=== PATIENT | female | born 1935 | race Caucasian/White ===

== ENCOUNTER 2021-05-15 17:36 | Emergency (ER) | payer MEDICARE ==
--- NOTE | 2021-05-15 17:48 | ERPHSYRPT ---
- History of Present Illness Time Seen by Provider: 05/15/21 17:48 Source: patient, family Exam Limitations: no limitations Physician History: This is an 85-year-old white female has a history of Parkinson's disease and hypertension. Patient took her hypertensive medication this morning. Her face was a bit flushed. This is a symptom that she has when her blood pressure is elevated. She then took her blood pressure at home and the systolic blood pressure was very elevated so she was brought into the emergency department for evaluation. Patient denies headache. Patient denies visual changes. Patient states that she was just seen by her audio/visual manager yesterday and everything on her eye exam looked normal and unchanged from prior evaluation in the audio/visual manager office. Patient has no chest pain. She is not short of breath. Her only complaint was flushed face which resolved prior to arrival to the emergency department. Timing/Duration: today, resolved prior to arrival Severity: mild (And resolved prior to arrival) Modifying Factors: Improves With: nothing Associated Symptoms: denies symptoms Allergies/Adverse Reactions: Sulfa (Sulfonamide Antibiotics) Allergy (Mild, Verified 05/15/21 17:54) Headache Home Medications: Acetaminophen [Tylenol] 650 mg PO Q4HPRN 11/20/14 [History] Lovastatin 40 mg PO HS 11/20/14 [History] Metoprolol Succinate 100 mg [Toprol Xl 100 MG] 100 mg PO DAILY 11/20/14 [History] Multivitamin/Iron/Folic Acid [Centrum Complete Multivit Tab] 1 each PO HS 11/20/14 [History] Amlodipine Besylate 5 mg [Norvasc 5 mg] 5 mg PO DAILY 05/15/21 [History] Amlodipine/Valsartan/Hcthiazid [Fehya-Gvmvf-Obrt 10-320-25 mg] 1 each PO DAILY 05/15/21 [History] Carbidopa/Levodopa [Carbidopa-Levo 25-100 Tab] 1 tablet PO QID 05/15/21 [History] Dorzolamide HCl/Pf [Dorzolamide 2% Eye Drop] 1 drop OP BID 05/15/21 [History] Memantine HCl 10 mg PO DAILY 05/15/21 [History] Potassium Chloride 10 Meq Tab* [Klor Con 10 MEQ] 10 meq PO DAILY 05/15/21 [History] Rivastigmine Tartrate [Rivastigmine] 1.5 mg PO TID 05/15/21 [History] Sertraline HCl 25 mg PO DAILY 05/15/21 [History] Hx Tetanus, Diphtheria Vaccination/Date Given: No Hx Influenza Vaccination/Date Given: Yes (2016) Hx Pneumococcal Vaccination/Date Given: Yes (2015) Travel Risk - International Travel Have you traveled outside of the country in past 3 weeks: No - Coronavirus Screening Are you exhibiting any of the following symptoms?: No Close contact with a COVID-19 positive Pt in past 14-21 Days: No - Review of Systems Constitutional: No Symptoms Eyes: No Symptoms Ears, Nose, & Throat: No Symptoms Respiratory: No Symptoms Cardiac: No Symptoms Abdominal/Gastrointestinal: No Symptoms Genitourinary Symptoms: No Symptoms Musculoskeletal: No Symptoms Skin: Other (Brief flushing of face prior to arrival) Neurological: No Symptoms Psychological: No Symptoms Endocrine: No Symptoms Hematologic/Lymphatic: No Symptoms Immunological/Allergic: No Symptoms All Other Systems: Reviewed and Negative - Past Medical History Pertinent Past Medical History: Yes Neurological History: No Pertinent History, Other Cardiac History: High Cholesterol, Hypertension Respiratory History: No Pertinent History Endocrine Medical History: No Pertinent History Musculoskeletal History: Osteoarthritis GI Medical History: Irritable Bowel History: No Pertinent History Psycho-Social History: No Pertinent History Female Reproductive Disorders: No Pertinent History Other Medical History: PARKINSON'S DX'D 5 YEARS AGO. GLAUCOMA, IBS, CHRONIC LBP, - Past Surgical History Past Surgical History: Yes Neuro Surgical History: No Pertinent History Cardiac: No Pertinent History Respiratory: No Pertinent History Gastrointestinal: No Pertinent History Genitourinary: No Pertinent History Female Surgical History: Hysterectomy Other Surgical History: BLADDER SURGERY,HYSTERECTOMY,EYE SURGERY - Social History Smoking Status: Former smoker Exposure to second hand smoke: Yes Drug Use: none Patient Lives Alone: No - Nursing Vital Signs Nursing Vital Signs: Initial Vital Signs Temperature 97.2 F 05/15/21 17:43 Pulse Rate 69 05/15/21 17:43 Blood Pressure 198/82 05/15/21 17:43 O2 Sat by Pulse Oximetry 98 05/15/21 17:43 Pain Scale Pain Intensity 0 - Physical Exam General Appearance: no apparent distress, alert, anxiety Eye Exam: PERRL/EOMI, eyes nml inspection Ears, Nose, Throat Exam: normal ENT inspection, moist mucous membranes Neck Exam: normal inspection, non-tender, supple, full range of motion Respiratory Exam: normal breath sounds, lungs clear, airway intact, No chest tenderness, No respiratory distress Cardiovascular Exam: regular rate/rhythm, normal heart sounds, normal peripheral pulses Gastrointestinal/Abdomen Exam: soft, normal bowel sounds, No tenderness Pelvic Exam: not done Rectal Exam: not done Back Exam: normal inspection, normal range of motion, No CVA tenderness, No vertebral tenderness Extremity Exam: normal inspection, normal range of motion, pelvis stable Neurologic Exam: alert, oriented x 3, cooperative, employee relations manager II-XII nml as tested, normal mood/affect, nml cerebellar function, nml station & gait, No sensation nml Skin Exam: normal color, warm, dry Lymphatic Exam: No adenopathy SpO2 Interpretation: normal O2 Delivery: Room Air - Course Nursing assessment & vital signs reviewed: Yes Ordered Tests: Active Orders 24 hr Category Date Time Status IV Insertion STAT Care 05/15/21 18:19 Active BMP Stat Lab 05/15/21 18:18 Completed CBC W DIFF Stat Lab 05/15/21 18:18 Completed Medication Summary Discontinued Medications Generic Name Dose Route Start Last Admin Trade Name Freq PRN Reason Stop Dose Admin Enalaprilat 0.625 mg 05/15/21 19:10 05/15/21 19:26 Vasotec I.V. 2.5 Mg IV 05/15/21 19:11 0.625 mg STAT ONE Administration Enalaprilat Confirm 05/15/21 19:24 Vasotec I.V. 2.5 Mg Administered 05/15/21 19:25 Dose 2.5 mg IV .STK-MED ONE Lab/Rad Data: Laboratory Result Diagrams 05/15/21 18:18 05/15/21 18:18 Laboratory Results 05/15/21 05/15/21 Range/Units 18:18 18:18 WBC 7.6 (4.0-10.5) K/mm3 RBC 4.26 (4.1-5.4) M/mm3 Hgb 12.5 (12.0-16.0) gm/dl Hct 39.7 (35-47) % MCV 93.2 (78-100) fl MCH 29.3 (26-32) pg MCHC 31.5 L (32-36) g/dl RDW 15.2 H (11.5-14.0) % Plt Count 241 (150-450) K/mm3 MPV 10.8 (7.5-11.0) fl Gran % 55.2 (36.0-66.0) % Eos # (Auto) 0.24 (0-0.5) Absolute Lymphs (auto) 2.66 (1.0-4.6) Absolute Monos (auto) 0.46 (0.0-1.3) Lymphocytes % 35.2 (24.0-44.0) % Monocytes % 6.1 (0.0-12.0) % Eosinophils % 3.2 (0.00-5.0) % Basophils % 0.3 (0.0-0.4) % Absolute Granulocytes 4.18 (1.4-6.9) Basophils # 0.02 (0-0.4) Sodium 141 (137-145) mmol/L Potassium 3.8 (3.5-5.1) mmol/L Chloride 105 (98-107) mmol/L Carbon Dioxide 27 (22-30) mmol/L Anion Gap 12.5 (5-15) MEQ/L BUN 22 H (7-17) mg/dL Creatinine 1.04 (0.52-1.04) mg/dL Estimated GFR 53.3 ML/MIN Glucose 95 (74-106) mg/dL Calcium 9.2 (8.4-10.2) mg/dL - Progress Progress: improved, re-examined Progress Note: 05/15/21 19:42 Medical decision making: This patient does have hypertension. She has no symptoms. Her laboratory work-up results are within normal limits. We did provide her with a single dose of enalapril intravenously. We will discharge her to home with instruction to continue her medicine as prescribed. She is to follow-up with her primary care physician. Counseled pt/family regarding: lab results, diagnosis, need for follow-up - Departure Departure Disposition: Home Clinical Impression: Hypertensive urgency Condition: Stable Critical Care Time: Yes Critical Care Time(excluding separately billable procedures): Critical 30-74 mins Referrals: ALMAZ WELDON MD [Primary Care Provider] - Additional Instructions: Drink plenty of fluids. Take your medication as prescribed. Follow-up with your primary care/prescribing physician for further management. Monitor and keep a log of your blood pressure tonight and in the morning. Call your prescribing doctor tomorrow morning for further management.
[2021-05-15] MEDS ORDERED: VASOTEC I.V. 2.5 MG IV ONE ×2 (19:10→19:24)
[2021-05-15 19:16] LABS: Absolute Neutrophil Ct (ANC) 4.18 (1.4-6.9); BASOPHIL % 0.3 % (0.0-0.4); Basophil (Absolute #) 0.02 (0-0.4); Eosinophil % 3.2 % (0.00-5.0); Eosinophil (Absolute #) 0.24 (0-0.5); Hematocrit 39.7 % (35-47); Hemoglobin 12.5 gm/dl (12.0-16.0); Lymphocyte (Absolute #) 2.66 (1.0-4.6); Lymphocytes % 35.2 % (24.0-44.0); Mean Cell Volume 93.2 fl (78-100); Mean Corpuscular Hemoglobin 29.3 pg (26-32); Mean Corpuscular Hgb Concent. 31.5 g/dl (32-36); Mean Platelet Volume 10.8 fl (7.5-11.0); Monocyte (Absolute #) 0.46 (0.0-1.3); Monocytes % 6.1 % (0.0-12.0); Neutrophil % 55.2 % (36.0-66.0); Platelet Count 241 K/mm3 (150-450); Red Blood Count 4.26 M/mm3 (4.1-5.4); Red Cell Distribution Width 15.2 % (11.5-14.0); White Blood Count 7.6 K/mm3 (4.0-10.5)
[2021-05-15 19:28] LABS: ANION GAP 12.5 MEQ/L (5-15); Calcium 9.2 mg/dL (8.4-10.2); Creatinine 1 1.04 mg/dL (0.52-1.04); EST GLOMERULAR FILTRATION RATE 53.3 ML/MIN; Potassium 3.8 mmol/L (3.5-5.1)
[2021-05-15 19:48] VITALS: BP 155/62; PULSE 57; O2SAT 99
== END 2021-05-15 20:11 | disposition home or self-care (01) ==
LOC: ED 17:36
DX: I16.0 Hypertensive urgency (principal); G20 Parkinson's disease; K58.9 Irritable bowel syndrome, unspecified; Z79.899 Other long term (current) drug therapy
CPT/HCPCS: 36000; 36415; 80048; 85025; 96374; 99284; 99291

== ENCOUNTER 2021-05-29 02:02 | Emergency (ER) | payer MEDICARE ==
[2021-05-29] MEDS ORDERED: DELTASONE 20 MG PO ONE (02:14)
[2021-05-29] MEDS ORDERED: DUONEB 0.5-3 MG/3 ml Neb IH ONE ×2 (02:14→02:43)
--- NOTE | 2021-05-29 02:18 | ERPHSYRPT ---
- History of Present Illness Time Seen by Provider: 05/29/21 02:06 Source: patient, EMS Exam Limitations: no limitations Physician History: 85 years old female with history of Parkinson's disease, hypertension presented in the ER with 4 days history of nonproductive cough with progressive worsening especially with lying down. Patient also report having subjective feeling of fever and chills tonight. She is afebrile on presentation. Denies any shortness of breath. Patient denies any chest pain/pressure. Denies any sick contact. Does have Covid vaccine. Timing/Duration: day(s) (4), intermittent, gradual onset, worse Cough Quality/Degree: dry cough Possible Cause: no prior episodes Modifying Factors: Worsens With: lying down Associated Symptoms: fever, chest pain/soreness, cough, headache, No nasal drainage, No shortness of breath, No wheezing Allergies/Adverse Reactions: Sulfa (Sulfonamide Antibiotics) Allergy (Mild, Verified 05/29/21 02:37) Headache Home Medications: Acetaminophen [Tylenol] 650 mg PO Q4HPRN 11/20/14 [History] Lovastatin 40 mg PO HS 11/20/14 [History] Metoprolol Succinate 100 mg [Toprol Xl 100 MG] 100 mg PO DAILY 11/20/14 [History] Multivitamin/Iron/Folic Acid [Centrum Complete Multivit Tab] 1 each PO HS 11/20/14 [History] Amlodipine Besylate 5 mg [Norvasc 5 mg] 5 mg PO DAILY 05/15/21 [History] Amlodipine/Valsartan/Hcthiazid [Fjuow-Aftqj-Mwdn 10-320-25 mg] 1 each PO DAILY 05/15/21 [History] Carbidopa/Levodopa [Carbidopa-Levo 25-100 Tab] 1 tablet PO QID 05/15/21 [History] Dorzolamide HCl/Pf [Dorzolamide 2% Eye Drop] 1 drop OP BID 05/15/21 [History] Memantine HCl 10 mg PO DAILY 05/15/21 [History] Potassium Chloride 10 Meq Tab* [Klor Con 10 MEQ] 10 meq PO DAILY 05/15/21 [History] Rivastigmine Tartrate [Rivastigmine] 1.5 mg PO TID 05/15/21 [History] Sertraline HCl 25 mg PO DAILY 05/15/21 [History] Hx Tetanus, Diphtheria Vaccination/Date Given: No Hx Influenza Vaccination/Date Given: Yes (2016) Hx Pneumococcal Vaccination/Date Given: Yes (2015) Travel Risk - Vaccine Status Have you recieved a Covid-19 vaccination: Yes Design Checker: Moderna - Vaccination Dates Date of 2cond Vaccination (if applicable): 01/16/21 - Review of Systems Constitutional: Fever, Chills, Fatigue Eyes: No Symptoms Ears, Nose, & Throat: No Symptoms Respiratory: Cough Cardiac: No Symptoms Abdominal/Gastrointestinal: No Symptoms Genitourinary Symptoms: No Symptoms Musculoskeletal: No Symptoms Skin: No Symptoms Neurological: Headache Psychological: No Symptoms Endocrine: No Symptoms Hematologic/Lymphatic: No Symptoms Immunological/Allergic: No Symptoms - Past Medical History Pertinent Past Medical History: Yes Neurological History: No Pertinent History, Other Cardiac History: High Cholesterol, Hypertension Respiratory History: No Pertinent History Endocrine Medical History: No Pertinent History Musculoskeletal History: Osteoarthritis GI Medical History: Irritable Bowel History: No Pertinent History Psycho-Social History: No Pertinent History Female Reproductive Disorders: No Pertinent History Other Medical History: PARKINSON'S DX'D 5 YEARS AGO. GLAUCOMA, IBS, CHRONIC LBP, - Past Surgical History Past Surgical History: Yes Neuro Surgical History: No Pertinent History Cardiac: No Pertinent History Respiratory: No Pertinent History Gastrointestinal: No Pertinent History Genitourinary: No Pertinent History Female Surgical History: Hysterectomy Other Surgical History: BLADDER SURGERY,HYSTERECTOMY,EYE SURGERY - Social History Smoking Status: Former smoker Exposure to second hand smoke: Yes Drug Use: none Patient Lives Alone: No - Nursing Vital Signs Nursing Vital Signs: Initial Vital Signs Temperature 98.1 F 05/29/21 02:19 Pulse Rate 76 05/29/21 02:19 Respiratory Rate 18 05/29/21 02:19 Blood Pressure 155/59 05/29/21 02:19 O2 Sat by Pulse Oximetry 96 05/29/21 02:19 Pain Scale Pain Intensity 6 - Physical Exam General Appearance: no apparent distress, alert Eye Exam: PERRL/EOMI, eyes nml inspection Ears, Nose, Throat Exam: normal ENT inspection, pharyngeal erythema Neck Exam: normal inspection, non-tender, supple, full range of motion Respiratory Exam: normal breath sounds, lungs clear Cardiovascular Exam: regular rate/rhythm, normal heart sounds Gastrointestinal/Abdomen Exam: soft, normal bowel sounds Back Exam: normal inspection Extremity Exam: normal inspection, normal range of motion Neurologic Exam: alert, oriented x 3, cooperative Skin Exam: normal color SpO2 Interpretation: normal SpO2: 96 O2 Delivery: Room Air - Course EKG Interpreted by Me: RATE (74), Sinus Rhythm, NORMAL AXIS, NORMAL INTERVALS Ordered Tests: Active Orders 24 hr Category Date Time Status CHEST 1 VIEW (PORTABLE) Stat Exams 05/29/21 02:15 Taken CBC W DIFF Stat Lab 05/29/21 02:39 Completed CMP Stat Lab 05/29/21 02:39 Received NT PRO BNP Stat Lab 05/29/21 02:39 Received TROPONIN Q3H Lab 05/29/21 02:39 Received TROPONIN Q3H Lab 05/29/21 05:15 Ordered TROPONIN Q3H Lab 05/29/21 08:15 Ordered TROPONIN Q3H Lab 05/29/21 11:15 Ordered TROPONIN Q3H Lab 05/29/21 14:15 Ordered UA W/RFX UR CULTURE Stat Lab 05/29/21 02:15 Ordered Medication Summary Discontinued Medications Generic Name Dose Route Start Last Admin Trade Name Freq PRN Reason Stop Dose Admin Albuterol/Ipratropium 3 ml 05/29/21 02:14 Duoneb 0.5-3 Mg/3 Ml Neb IH 05/29/21 02:15 STAT ONE Albuterol/Ipratropium Confirm 05/29/21 02:43 Duoneb 0.5-3 Mg/3 Ml Neb Administered 05/29/21 02:44 Dose 3 ml IH .STK-MED ONE Prednisone 60 mg 05/29/21 02:14 05/29/21 02:48 Deltasone 20 Mg PO 05/29/21 02:15 60 mg STAT ONE Administration Prednisone Confirm 05/29/21 02:47 Deltasone 20 Mg Administered 05/29/21 02:48 Dose 60 mg .ROUTE .STK-MED ONE Lab/Rad Data: Laboratory Result Diagrams 05/29/21 02:39 Laboratory Results 05/29/21 Range/Units 02:39 WBC 11.9 H (4.0-10.5) K/mm3 RBC 3.95 L (4.1-5.4) M/mm3 Hgb 11.5 L (12.0-16.0) gm/dl Hct 37.2 (35-47) % MCV 94.2 (78-100) fl MCH 29.1 (26-32) pg MCHC 30.9 L (32-36) g/dl RDW 14.8 H (11.5-14.0) % Plt Count 241 (150-450) K/mm3 MPV 10.9 (7.5-11.0) fl Gran % 73.0 H (36.0-66.0) % Eos # (Auto) 0.17 (0-0.5) Absolute Lymphs (auto) 2.11 (1.0-4.6) Absolute Monos (auto) 0.92 (0.0-1.3) Lymphocytes % 17.7 L (24.0-44.0) % Monocytes % 7.7 (0.0-12.0) % Eosinophils % 1.4 (0.00-5.0) % Basophils % 0.2 (0.0-0.4) % Absolute Granulocytes 8.70 H (1.4-6.9) Basophils # 0.02 (0-0.4) - Progress Progress: improved Air Movement: good Progress Note: 05/29/21 85 years old is evaluated for cough congestion for 4 days worsening with lying down. Nonproductive cough. No shortness of breath. Lungs bilateral clear to auscultation. Given DuoNeb and oral steroids. Feeling better. Chest x-ray did not reveal any obvious pneumonic infiltrate reviewed by me, official report is pending. Grossly unremarkable work-up. EKG normal sinus rhythm. I believe patient has viral URI with cough. We will put her on oral steroid and inhaler. Discussed signs symptoms of worsening needing return to ER which she seems understanding. Does not seem cardiac in nature at all, do not think she needs any other work-up and is stable for discharge. Blood Culture(s) Obtained: No Antibiotics given: No Counseled pt/family regarding: lab results, diagnosis, need for follow-up, rad results - Departure Departure Disposition: Home Clinical Impression: Viral URI with cough Condition: Stable Critical Care Time: No Referrals: LAMAZ WELDON MD [Primary Care Provider] - (1-2 days for reevaluation) Instructions: Cough, Adult (DC) Additional Instructions: Use inhaler as needed. Follow-up with primary care physician for reevaluation. Return to ER for worsening cough or if develop chest pain/shortness of breath/fever chills etc. Prescriptions: Prednisone 20 mg [Deltasone 20 mg] 60 mg PO DAILY 5 Days #15 tablet Albuterol 8 gm Mdi Hfa [Ventolin Hfa MDI] 8 gm IH Q4H #2 [email or web address] Azithromycin 250 mg [Zithromax 250 MG TABLET] 250 mg PO ZPACK #6 tablet
[2021-05-29 02:43] LABS: BASOPHIL % 0.2 % (0.0-0.4); Basophil (Absolute #) 0.02 (0-0.4); Eosinophil % 1.4 % (0.00-5.0); Eosinophil (Absolute #) 0.17 (0-0.5); Hematocrit 37.2 % (35-47); Hemoglobin 11.5 gm/dl (12.0-16.0); Lymphocyte (Absolute #) 2.11 (1.0-4.6); Lymphocytes % 17.7 % (24.0-44.0); Mean Cell Volume 94.2 fl (78-100); Mean Corpuscular Hemoglobin 29.1 pg (26-32); Mean Corpuscular Hgb Concent. 30.9 g/dl (32-36); Mean Platelet Volume 10.9 fl (7.5-11.0); Monocyte (Absolute #) 0.92 (0.0-1.3); Monocytes % 7.7 % (0.0-12.0); Platelet Count 241 K/mm3 (150-450); Red Blood Count 3.95 M/mm3 (4.1-5.4); Red Cell Distribution Width 14.8 % (11.5-14.0); White Blood Count 11.9 K/mm3 (4.0-10.5)
[2021-05-29] MEDS ORDERED: DELTASONE 20 MG ONE (02:47)
[2021-05-29 03:02] LABS: ALBUMIN 4.2 g/dL (3.5-5.0); ALKALINE PHOSPHATASE 86 U/L (38-126); ANION GAP 12.6 MEQ/L (5-15); BLOOD UREA NITROGEN 17 mg/dL (7-17); CHLORIDE 103 mmol/L (98-107); Calcium 9.3 mg/dL (8.4-10.2); Carbon Dioxide 28 mmol/L (22-30); Creatinine 1 1.14 mg/dL (0.52-1.04); EST GLOMERULAR FILTRATION RATE 47.9 ML/MIN; Glucose 117 mg/dL (74-106); NT PRO BNP 430 pg/mL (0-1800); Potassium 4.2 mmol/L (3.5-5.1); SGOT/AST 22 U/L (14-36); SODIUM 140 mmol/L (137-145); Total Protein 7.4 g/dL (6.3-8.2)
[2021-05-29 03:06] LABS: SGPT/ALT < 4 U/L (0-35)
[2021-05-29 03:30] LABS: Appearance CLEAR (CLEAR); Bacteria NONE SEEN /HPF (NEGATIVE); Bilirubin NEGATIVE (NEGATIVE); Blood MODERATE Ery/ul (0-5); Glucose NEGATIVE (NEGATIVE); Ketones NEGATIVE (NEGATIVE); Leukocyte Esterase NEGATIVE (NEGATIVE); Nitrite NEGATIVE (NEGATIVE); Protein,Urine Dip 30 (Negative); Specific Gravity 1.012 (1.005-1.025); Urobilinogen NEGATIVE mg/dL (0-1); WBC 0-2 /HPF (0-5)
[2021-05-29 04:48] VITALS: BP 158/66; PULSE 76; O2SAT 97
--- NOTE | 2021-05-29 22:12 | XRAY ---
Exam: AP upright portable chest film from 05/29/2021. Comparison: AP upright portable chest film from 09/16/2017. Indication: Cough. Findings: The transverse heart size is slightly enlarged. There is mild tortuosity of the aortic arch and descending thoracic aorta. The jordan and mediastinal structures otherwise appear unremarkable. The lungs are adequately expanded. Minimal opacity is seen near the left cardiac apex which could be due to epicardial fat or minimal atelectasis/scarring. Otherwise, the lung lazcano appear clear. No pulmonary vascular congestion is seen. No pneumothorax or pleural fluid is seen. Moderate degenerative changes are seen within both shoulder girdles. The bones are demineralized. Impression: 1. Mild cardiomegaly without evidence of acute cardiac decompensation/CHF. 2. Minimal airspace opacity at the lateral left lung base near the cardiac apex is likely due to epicardial fat or minimal atelectasis/scarring. 3. The remainder of the lung lazcano appears clear.
== END 2021-05-29 04:35 | disposition home or self-care (01) ==
LOC: ED 02:02
DX: J06.9 Acute upper respiratory infection, unspecified (principal); R05 Cough; R07.9 Chest pain, unspecified; R51.9 Headache, unspecified; Z79.899 Other long term (current) drug therapy
CPT/HCPCS: 36415; 71045; 80053; 81001; 83880; 84484; 85025; 87086; 94640; 99284; A9270-GY

== ENCOUNTER 2021-12-26 12:57 | Emergency (ER) | payer MEDICARE ==
--- NOTE | 2021-12-26 13:23 | XRAY ---
Indication: Pain and pop with walking. Comparison: None 4 view right knee demonstrates osteopenia, minimal/mild tricompartmental degenerative changes, large tibial tuberosity spur, small nonspecific effusion, and mild scattered vascular calcifications. No other bony, articular, or soft tissue abnormalities.
--- NOTE | 2021-12-26 13:30 | ERPHSYRPT ---
- History of Present Illness Source: patient, EMS Exam Limitations: no limitations Patient Subjective Stated Complaint: Right knee pain Triage Nursing Assessment: Patient brought into ED via EMS and transferred to bed with assist of 2. Patient A+O X3. Patient's skin pink, warm and dry. Patient complains of pain to the back of right knee after hearing a "pop" while walking. Patient complains of posterior right knee pain 1/10. No swelling noted. Pulses noted. Physician History: 86 yo wf felt a "pop" R knee while walking across kitchen floor. Pt did not fall. States that pain is 1/10. She denies hip pain/lower extremity edema/dyspnea/chest pain/previous knee injury. Method of Injury: unknown ([place] pop walking) Occurred: just prior to arrival Quality: constant (1-2) Severity of Pain-Max: mild Severity of Pain-Current: mild Lower Extremities Pain: knee: right Modifying Factors: Improves With: movement Associated Symptoms: popping sensation Allergies/Adverse Reactions: Sulfa (Sulfonamide Antibiotics) Allergy (Mild, Verified 05/29/21 02:37) Headache Home Medications: Acetaminophen [Tylenol] 650 mg PO Q4HPRN 11/20/14 [History] Lovastatin 40 mg PO HS 11/20/14 [History] Metoprolol Succinate 100 mg [Toprol Xl 100 MG] 100 mg PO DAILY 11/20/14 [History] Multivitamin/Iron/Folic Acid [Centrum Complete Multivit Tab] 1 each PO HS 11/20/14 [History] Amlodipine Besylate 5 mg [Norvasc 5 mg] 5 mg PO DAILY 05/15/21 [History] Amlodipine/Valsartan/Hcthiazid [Jqmjt-Vxcup-Xhrl 10-320-25 mg] 1 each PO DAILY 05/15/21 [History] Carbidopa/Levodopa [Carbidopa-Levo 25-100 Tab] 1 tablet PO QID 05/15/21 [History] Dorzolamide HCl/Pf [Dorzolamide 2% Eye Drop] 1 drop OP BID 05/15/21 [History] Memantine HCl 10 mg PO DAILY 05/15/21 [History] Potassium Chloride 10 Meq Tab* [Klor Con 10 MEQ] 10 meq PO DAILY 05/15/21 [History] Rivastigmine Tartrate [Rivastigmine] 1.5 mg PO TID 05/15/21 [History] Sertraline HCl 25 mg PO DAILY 05/15/21 [History] Hx Tetanus, Diphtheria Vaccination/Date Given: No Hx Influenza Vaccination/Date Given: No Hx Pneumococcal Vaccination/Date Given: No Immunizations Up to Date: Yes Travel Risk - International Travel Have you traveled outside of the country in past 3 weeks: No - Coronavirus Screening Are you exhibiting any of the following symptoms?: No Close contact with a COVID-19 positive Pt in past 14-21 Days: No - Vaccine Status Have you recieved a Covid-19 vaccination: Yes 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 - Vaccination Dates Date of 2cond Vaccination (if applicable): 01/16/21 - Review of Systems Constitutional: No Symptoms Eyes: No Symptoms Ears, Nose, & Throat: No Symptoms Respiratory: No Symptoms Cardiac: No Symptoms Abdominal/Gastrointestinal: No Symptoms Genitourinary Symptoms: No Symptoms Musculoskeletal: No Symptoms, Arthralgias (R knee) Skin: No Symptoms Neurological: No Symptoms Psychological: No Symptoms Endocrine: No Symptoms Hematologic/Lymphatic: No Symptoms Immunological/Allergic: No Symptoms - Past Medical History Pertinent Past Medical History: Yes Neurological History: No Pertinent History, Other Cardiac History: High Cholesterol, Hypertension Respiratory History: No Pertinent History Endocrine Medical History: No Pertinent History Musculoskeletal History: Osteoarthritis GI Medical History: Irritable Bowel History: No Pertinent History Psycho-Social History: No Pertinent History Female Reproductive Disorders: No Pertinent History Other Medical History: PARKINSON'S DX'D 5 YEARS AGO. GLAUCOMA, IBS, CHRONIC LBP, - Past Surgical History Past Surgical History: Yes Neuro Surgical History: No Pertinent History Cardiac: No Pertinent History Respiratory: No Pertinent History Gastrointestinal: No Pertinent History Genitourinary: No Pertinent History Female Surgical History: Hysterectomy Other Surgical History: BLADDER SURGERY,HYSTERECTOMY,EYE SURGERY - Social History Smoking Status: Former smoker Exposure to second hand smoke: Yes Drug Use: none Patient Lives Alone: No Significant Family History: no pertinent family hx - Female History Hx Now: No - Nursing Vital Signs Nursing Vital Signs: Initial Vital Signs Temperature 96.2 F 12/26/21 13:03 Pulse Rate 59 L 12/26/21 13:03 Respiratory Rate 18 12/26/21 13:03 Blood Pressure 155/65 12/26/21 13:03 O2 Sat by Pulse Oximetry 95 02/08/22 13:03 Pain Scale Pain Intensity 1 Mild bradycardia/hypertensive - Physical Exam General Appearance: no apparent distress Eyes, Ears, Nose, Throat Exam: normal ENT inspection, TMs normal, pharynx normal, moist mucous membranes Neck Exam: normal inspection, non-tender, supple, full range of motion, No Brudzinski, No Kernig's, No meningismus, No carotid bruit Cardiovascular/Respiratory Exam: normal breath sounds, regular rate/rhythm, heart sounds normal, no respiratory distress, No no JVD Gastrointestinal/Abdominal Exam: non-tender, soft Back Exam: normal inspection, normal range of motion, No CVA tenderness, No vertebral tenderness Hips Exam: bilateral: non-tender, normal inspection, normal range of motion, no evidence of injury Legs Exam: bilateral leg: non-tender, normal inspection, normal range of motion, no evidence of injury, abrasions Knees Exam: right knee: bone tenderness (R knee TTP posteriorly/Good popliteal pulse, distal sensation, and capillary return) Ankle Exam: bilateral ankle: non-tender, normal inspection, normal range of motion, no evidence of injury Foot Exam: bilateral foot: non-tender, normal inspection, normal range of motion, no evidence of injury Neuro/Tendon Exam: normal sensation, normal motor functions, normal tendon functions, responds to pain, no evidence tendon injury, No motor deficit, No sensory deficit Mental Status Exam: alert, oriented x 3, cooperative Skin Exam: normal color, warm, dry SpO2 Interpretation: normal SpO2: 95 O2 Delivery: Room Air - Course Nursing assessment & vital signs reviewed: Yes - Radiology Exams Knee X-ray Interpretation: Discussed w/ radiologist (DJD/effusion/large tibial tuberosity spur) Ordered Tests: Active Orders 24 hr Category Date Time Status Splint STAT Care 12/26/21 13:40 Completed KNEE (MIN 4 VIEW) Stat Exams 12/26/21 13:13 Completed Medication Summary Discontinued Medications Generic Name Dose Route Start Last Admin Trade Name Freq PRN Reason Stop Dose Admin Ketorolac Tromethamine 15 mg 12/26/21 13:43 12/26/21 13:54 Ketorolac Tromethamine 30 Mg/Ml Inj IM 12/26/21 13:44 15 mg STAT ONE Administration Ketorolac Tromethamine Confirm 12/26/21 13:45 Ketorolac Tromethamine 30 Mg/Ml Inj Administered 12/26/21 13:46 Dose 30 mg .ROUTE .STK-MED ONE Ketorolac Tromethamine Confirm 12/26/21 13:53 Ketorolac Tromethamine 30 Mg/Ml Inj Administered 12/26/21 13:54 Dose 30 mg .ROUTE .STK-MED ONE - Progress Progress: improved Progress Note: 12/26/21 13:44 15mg IM Toradol 12/26/21 13:44 R knee immobilizer per nursing/NVI Counseled pt/family regarding: diagnosis, need for follow-up, rad results - Departure Departure Disposition: Home Clinical Impression: Knee strain Condition: Stable Critical Care Time: No Referrals: LOREN AGUIRRE DO [Primary Care Provider] - Follow up/PCP as directed ORTHO - [facility] LOC[facility] [NON-STAFF PHY W/O PRIVILEGES] - Follow up/PCP as directed Instructions: Knee Sprain (DC) Additional Instructions: Ice to knee for 12-24 hours Use your walker Motrin/Tylenol as needed for pain Follow up with Orthopedic clinic in AM
[2021-12-26] MEDS ORDERED: TORAdol 30 mg Injection IM ONE (13:43)
[2021-12-26] MEDS ORDERED: TORAdol 30 mg Injection ONE ×2 (13:45→13:53)
[2021-12-26 14:11] VITALS: BP 155/87; PULSE 70
[2021-12-26 17:15] VITALS: O2SAT 95
== END 2021-12-26 14:11 | disposition home or self-care (01) ==
LOC: ED 12:57
DX: S76.811A Strain of other specified muscles, fascia and tendons at thigh level, right thigh, initial encounter (principal); Y93.01 Activity, walking, marching and hiking; Y92.000 Kitchen of unspecified non-institutional (private) residence as the place of occurrence of the external cause; E78.5 Hyperlipidemia, unspecified; I10 Essential (primary) hypertension; G20 Parkinson's disease; Z79.899 Other long term (current) drug therapy
CPT/HCPCS: 73564; 96372; 99284; J1885; L1830

== ENCOUNTER 2022-11-19 12:44 | Emergency (ER) | payer MEDICARE ==
[2022-11-19 13:20] VITALS: O2SAT 98
--- NOTE | 2022-11-19 14:53 | ERPHSYRPT ---
- History of Present Illness Time Seen by Provider: 11/19/22 13:06 Source: patient Exam Limitations: no limitations Patient Subjective Stated Complaint: HTN Triage Nursing Assessment: Patient ambulated back to ED and transferred self to bed. Patient A+O X 3. Patient's skin pink, warm and dry. Patient complains of HTN. Patient states she woke up this am not feeling well. Patient states her b/p this am wqas 209/93 and she had nausea and abdominal pain. Patient currently denies pain at this time. Physician History: 86 years old female with history of hypertension presented in the ER with chief complaint of elevated blood pressure when she woke up this morning in low 200s with some nausea and abdominal discomfort. Patient report for the last couple of days she has been having flulike symptoms with aching all over. She did home COVID test which turned out to be negative. She took her routine blood pressure medication and currently she is asymptomatic. She denies any chest pain abdominal pain, difficulty breathing. No headache no numbness tingling or focal weakness. Patient is back to her baseline. Wants to get tested for COVID-19. During my evaluation patient blood pressure is 128/53. Timing/Duration: today Severity: moderate Allergies/Adverse Reactions: Sulfa (Sulfonamide Antibiotics) Allergy (Mild, Verified 11/19/22 13:09) Headache Home Medications: Acetaminophen [Tylenol] 650 mg PO Q4HPRN 11/20/14 [History] Lovastatin 40 mg PO HS 11/20/14 [History] Metoprolol Succinate 100 mg [Toprol Xl 100 MG] 100 mg PO DAILY 11/20/14 [History] Multivitamin/Iron/Folic Acid [Centrum Complete Multivit Tab] 1 each PO HS 11/20/14 [History] Amlodipine Besylate 5 mg [Norvasc 5 mg] 5 mg PO DAILY 05/15/21 [History] Amlodipine/Valsartan/Hcthiazid [Irron-Mlpoo-Rqkx 10-320-25 mg] 1 each PO DAILY 05/15/21 [History] Carbidopa/Levodopa [Carbidopa-Levo 25-100 Tab] 1 tablet PO QID 05/15/21 [His tory] Dorzolamide HCl/Pf [Dorzolamide 2% Eye Drop] 1 drop OP BID 05/15/21 [History] Memantine HCl 10 mg PO DAILY 05/15/21 [History] Potassium Chloride Tab* [Klor Con] 10 meq PO DAILY 05/15/21 [History] Rivastigmine Tartrate [Rivastigmine] 1.5 mg PO TID 05/15/21 [History] Sertraline HCl 25 mg PO DAILY 05/15/21 [History] Hx Tetanus, Diphtheria Vaccination/Date Given: No Hx Influenza Vaccination/Date Given: No Hx Pneumococcal Vaccination/Date Given: No Immunizations Up to Date: Yes Travel Risk - International Travel Have you traveled outside of the country in past 3 weeks: No - Coronavirus Screening Are you exhibiting any of the following symptoms?: No Close contact with a COVID-19 positive Pt in past 14-21 Days: No - Vaccine Status Have you recieved a Covid-19 vaccination: Yes 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 - Vaccination Dates Date of 2cond Vaccination (if applicable): 01/16/21 - Review of Systems Constitutional: No Symptoms Eyes: No Symptoms Ears, Nose, & Throat: No Symptoms Respiratory: No Symptoms Cardiac: No Symptoms Abdominal/Gastrointestinal: No Symptoms Genitourinary Symptoms: No Symptoms Musculoskeletal: Arthralgias Skin: No Symptoms Neurological: No Symptoms Psychological: No Symptoms Endocrine: No Symptoms Hematologic/Lymphatic: No Symptoms - Past Medical History Pertinent Past Medical History: Yes Neurological History: Other Cardiac History: High Cholesterol, Hypertension Respiratory History: No Pertinent History Endocrine Medical History: No Pertinent History Musculoskeletal History: Arthritis GI Medical History: Irritable Bowel History: No Pertinent History Psycho-Social History: No Pertinent History Female Reproductive Disorders: No Pertinent History Other Medical History: GLAUCOMA, IBS. SX: HYSTERECTOMY, BLADDER SURGERY, TRABCULECTOMY FOR GLAUCOMA RIGHT - Past Surgical History Past Surgical History: Yes Neuro Surgical History: No Pertinent History Cardiac: No Pertinent History Respiratory: No Pertinent History Gastrointestinal: No Pertinent History Genitourinary: No Pertinent History Female Surgical History: Hysterectomy Other Surgical History: BLADDER SURGERY,HYSTERECTOMY,EYE SURGERY - Social History Smoking Status: Former smoker Exposure to second hand smoke: Yes Drug Use: none Patient Lives Alone: No Significant Family History: no pertinent family hx - Nursing Vital Signs Nursing Vital Signs: Initial Vital Signs Temperature 97.8 F 11/19/22 13:10 Pulse Rate 67 11/19/22 13:10 Respiratory Rate 18 11/19/22 13:10 Blood Pressure 151/99 11/19/22 13:10 O2 Sat by Pulse Oximetry 98 11/19/22 13:10 Pain Scale Pain Intensity 0 - Physical Exam General Appearance: no apparent distress, alert Eye Exam: PERRL/EOMI, eyes nml inspection Ears, Nose, Throat Exam: normal ENT inspection Neck Exam: normal inspection, full range of motion Respiratory Exam: normal breath sounds, lungs clear Cardiovascular Exam: regular rate/rhythm, normal heart sounds Gastrointestinal/Abdomen Exam: soft, normal bowel sounds, No tenderness, No guarding Back Exam: normal inspection, normal range of motion, No CVA tenderness Extremity Exam: normal inspection, normal range of motion Neurologic Exam: alert, oriented x 3, cooperative, 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 Patient blood pressure is improved after she had her morning dose of antihypertensive. She was having some flulike symptoms and her home COVID and COVID test over here is negative. She is also negative for influenza. She has nonfocal neuro exam throughout stay in the ER. No abdominal pain nausea vomiting, chest pain palpitations or shortness of breath. She ambulated in the ER to the bathroom with no difficulty. I would not change her blood pressure medication and recommended monitoring, keeping a log and outpatient follow-up with primary care. At this point I do not think she needs any other work-up and is stable for discharge with outpatient follow-up. Counseled pt/family regarding: lab results, diagnosis, need for follow-up - Departure Departure Disposition: Home Clinical Impression: Uncontrolled hypertension Condition: Stable Critical Care Time: No Referrals: LOREN AGUIRRE, [Primary Care Provider] - Follow up/PCP as directed (1-2 days for reevaluation) Instructions: Malignant Hypertension (DC) Additional Instructions: Take low-salt diet, take your medications as recommended. Regularly check your blood pressure, keep a log and follow-up with primary care for reevaluation. Return to ER for uncontrolled blood pressure, headache, chest pain, palpitations, shortness of breath, abdominal pain, numbness tingling focal weakness, visual disturbance etc.
[2022-11-19 15:07] LABS: INFLUENZA A NEGATIVE (NEGATIVE); INFLUENZA B NEGATIVE (NEGATIVE); RESPIRATORY SYNCTIAL VIRUS NEGATIVE (Negative); SARS-CoV-2 Xpert Express NEGATIVE (NEGATIVE)
[2022-11-19 15:37] VITALS: BP 160/56; PULSE 68
== END 2022-11-19 15:46 | disposition home or self-care (01) ==
LOC: ED 12:44
DX: I10 Essential (primary) hypertension (principal); M79.10 Myalgia, unspecified site; E78.5 Hyperlipidemia, unspecified; Z79.899 Other long term (current) drug therapy; Z20.828 Contact with and (suspected) exposure to other viral communicable diseases
CPT/HCPCS: 0241U; 99282

== ENCOUNTER 2023-01-29 15:13 | Emergency (ER) | payer MEDICARE ==
--- NOTE | 2023-01-29 15:21 | ERPHSYRPT ---
- History of Present Illness Time Seen by Provider: 01/29/23 15:21 Source: patient Exam Limitations: no limitations Physician History: 87-year-old female presents to our ED as a referral from her primary care doctor's office for evaluation of a sore throat. Patient states he had a sore throat for last 3 days. Patient tested positive via COVID test. Patient had a fever at home of 101. Patient currently afebrile. Patient sore throat is minimal at this time. Patient states is not bothersome. Patient states he feels well. No chest pain or shortness of breath. No nausea vomiting or diaphoresis. Symptoms are mild to moderate in intensity. Patient denies weakn ess. Patient states she is here because she was asked to come to the ER however she has no significant complaints at this time. Will discharge home. Portions of this note were created with voice recognition technology. There may be grammatical, spelling, punctuation or sound alike errors Timing/Duration: today Severity: moderate Modifying Factors: Improves With: other (Somewhat worse with swallowing) Associated Symptoms: denies symptoms Allergies/Adverse Reactions: Sulfa (Sulfonamide Antibiotics) Allergy (Mild, Verified 01/29/23 15:14) Headache Home Medications: Acetaminophen [Tylenol] 650 mg PO Q4HPRN 11/20/14 [History] Lovastatin 40 mg PO HS 11/20/14 [History] Metoprolol Succinate 100 mg [Toprol Xl 100 MG] 100 mg PO DAILY 11/20/14 [History] Multivitamin/Iron/Folic Acid [Centrum Complete Multivit Tab] 1 each PO HS 01/30 [History] Amlodipine Besylate 5 mg [Norvasc 5 mg] 5 mg PO DAILY 05/15/21 [History] Amlodipine/Valsartan/Hcthiazid [Eeruv-Zgkqy-Bxjk 10-320-25 mg] 1 each PO DAILY 05/15/21 [History] Carbidopa/Levodopa [Carbidopa-Levo 25-100 Tab] 1 tablet PO QID 05/15/21 [History] Dorzolamide HCl/Pf [Dorzolamide 2% Eye Drop] 1 drop OP BID 05/15/21 [History] Memantine HCl 10 mg PO DAILY 05/15/21 [History] Potassium Chloride Tab* [Klor Con] 10 meq PO DAILY 05/15/21 [History] Rivastigmine Tartrate [Rivastigmine] 1.5 mg PO TID 05/15/21 [History] Sertraline HCl 25 mg PO DAILY 05/15/21 [History] Hx Tetanus, Diphtheria Vaccination/Date Given: No Hx Influenza Vaccination/Date Given: No Hx Pneumococcal Vaccination/Date Given: No Travel Risk - Vaccine Status Have you recieved a Covid-19 vaccination: Yes [employer]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 - Vaccination Dates Date of 2cond Vaccination (if applicable): 01/16/21 - Review of Systems Constitutional: No Symptoms, No Fever, No Chills Eyes: No Symptoms Ears, Nose, & Throat: No Symptoms Respiratory: No Symptoms, No Cough, No Dyspnea Cardiac: No Symptoms, No Chest Pain, No Edema, No Syncope Abdominal/Gastrointestinal: No Symptoms, No Abdominal Pain, No Nausea, No Vomiting, No Diarrhea Genitourinary Symptoms: No Symptoms, No Dysuria Musculoskeletal: No Symptoms, No Back Pain, No Neck Pain Skin: No Symptoms, No Rash Neurological: No Symptoms, No Dizziness, No Focal Weakness, No Sensory Changes Psychological: No Symptoms Endocrine: No Symptoms Hematologic/Lymphatic: No Symptoms Immunological/Allergic: No Symptoms All Other Systems: Reviewed and Negative - Past Medical History Pertinent Past Medical History: Yes Neurological History: Other Cardiac History: High Cholesterol, Hypertension Respiratory History: No Pertinent History Endocrine Medical History: No Pertinent History Musculoskeletal History: Arthritis GI Medical History: Irritable Bowel History: No Pertinent History Psycho-Social History: No Pertinent History Female Reproductive Disorders: No Pertinent History Other Medical History: GLAUCOMA, IBS. SX: HYSTERECTOMY, BLADDER SURGERY, TRABCULECTOMY FOR GLAUCOMA RIGHT - Past Surgical History Past Surgical History: Yes Neuro Surgical History: No Pertinent History Cardiac: No Pertinent History Respiratory: No Pertinent History Gastrointestinal: No Pertinent History Genitourinary: No Pertinent History Female Surgical History: Hysterectomy Other Surgical History: BLADDER SURGERY,HYSTERECTOMY,EYE SURGERY - Social History Smoking Status: Former smoker Exposure to second hand smoke: Yes Drug Use: none Patient Lives Alone: No Significant Family History: no pertinent family hx - Nursing Vital Signs Nursing Vital Signs: Initial Vital Signs Temperature 99.6 F 01/29/23 15:16 Pulse Rate 74 01/29/23 15:16 Respiratory Rate 18 01/29/23 15:16 Blood Pressure 124/58 01/29/23 15:16 O2 Sat by Pulse Oximetry 96 01/29/23 15:16 Pain Scale Pain Intensity 5 - Physical Exam General Appearance: no apparent distress, alert Eye Exam: PERRL/EOMI, eyes nml inspection Ears, Nose, Throat Exam: normal ENT inspection, TMs normal, pharynx normal, moist mucous membranes, other (Mild pharyngitis) Neck Exam: normal inspection, non-tender, supple, full range of motion Respiratory Exam: normal breath sounds, lungs clear, airway intact, No respiratory distress Cardiovascular Exam: regular rate/rhythm, normal heart sounds, normal peripheral pulses Gastrointestinal/Abdomen Exam: soft, normal bowel sounds, No tenderness, No mass Back Exam: normal inspection, normal range of motion, No CVA tenderness, No vertebral tenderness Extremity Exam: normal inspection, normal range of motion, pelvis stable Neurologic Exam: alert, oriented x 3, cooperative, normal mood/affect, nml cerebellar function, nml station & gait, sensation nml, No motor deficits Skin Exam: normal color, warm, dry, No rash Lymphatic Exam: No adenopathy SpO2 Interpretation: normal SpO2: 98 O2 Delivery: Room Air - Course Nursing assessment & vital signs reviewed: Yes - Progress Progress: improved Progress Note: Patient is an 87-year-old female presents to our ED for sore throat. Patient has had a sore throat for 3 days. Patient tested positive for COVID. Patient had a fever at home of 101. Patient currently afebrile. Patient has no other complaints. Physical exam reveals mild pharyngitis. Patient's complaint is ac enterprise. Complexity of problem addressed is low. No critical care time. Complexity of data reviewed and analyzed is none. Risk of complications and or risk of morbidity/mortality of patient management is minimal. Patient received Tylenol for mild pharyngitis. We contacted patient's daughter and spoke to her regarding the indication for the visit. We advised the patient will be going home. Sore throat is common in COVID infections. No indication for further work-up. Patient has no other complaints. Patient agrees to follow-up with primary care doctor within 48 hours for reevaluation. Portions of this note were created with voice recognition technology. There may be grammatical, spelling, punctuation or sound alike errors 01/29/23 15:30 Counseled pt/family regarding: diagnosis, need for follow-up - Departure Departure Disposition: Home Clinical Impression: COVID-19, Sore throat (viral) Condition: Stable Critical Care Time: No Referrals: LOREN AGUIRRE DO [Primary Care Provider] - Follow up/PCP as directed
[2023-01-29 15:29] VITALS: BP 113/78; PULSE 70
[2023-01-29] MEDS ORDERED: TYLENOL 325 MG PO ONE (15:29)
[2023-01-29 15:30] VITALS: O2SAT 98
[2023-01-29] MEDS ORDERED: TYLENOL EXTRA STRENGTH 500 MG ONE (15:30)
[2023-01-29] MEDS ORDERED: TYLENOL EXTRA STRENGTH 500 MG PO PRN (15:32)
== END 2023-01-29 15:42 | disposition home or self-care (01) ==
LOC: ED 15:13
DX: U07.1 COVID-19 (principal); J02.9 Acute pharyngitis, unspecified; R50.9 Fever, unspecified; E78.5 Hyperlipidemia, unspecified; I10 Essential (primary) hypertension; Z79.899 Other long term (current) drug therapy
CPT/HCPCS: 99281; A9270-GY

== ENCOUNTER 2023-02-04 09:33 | Emergency (ER) | payer MEDICARE ==
--- NOTE | 2023-02-04 10:03 | ERPHSYRPT ---
- History of Present Illness Time Seen by Provider: 02/04/23 09:55 Source: patient, family Exam Limitations: no limitations Patient Subjective Stated Complaint: Pt states "I was here and had positive covid last saturday but now I have no voice and I am congested. The dr thinks I might have pneumonia." Triage Nursing Assessment: Pt presented alert and oriented X 3, skin pwd. Pt ambulates with a slow gait, pt voice is raspy and pt in no aparent respiratory distress. Physician History: Patient is a 87-year-old white female who presents with a chief complaint of congestion. She tested positive for COVID on 1 week ago but was doing well and was discharged with no other treatment. Since then she has had coughing nasal congestion hoarseness. She was sent to the ER by her PCP who fears that she may be getting COVID-pneumonia. Timing/Duration: week(s) (1) Cough Quality/Degree: dry cough Possible Cause: illness exposure Modifying Factors: Improves With: coughing Associated Symptoms: cough, nasal congestion, nasal drainage Allergies/Adverse Reactions: Sulfa (Sulfonamide Antibiotics) Allergy (Mild, Verified 01/29/23 15:14) Headache Home Medications: Acetaminophen [Tylenol] 650 mg PO Q4HPRN 11/20/14 [History] Lovastatin 40 mg PO HS 11/20/14 [History] Metoprolol Succinate 100 mg [Toprol Xl 100 MG] 100 mg PO DAILY 11/20/14 [History] Multivitamin/Iron/Folic Acid [Centrum Complete Multivit Tab] 1 each PO HS 11/20/14 [History] Amlodipine Besylate 5 mg [Norvasc 5 mg] 5 mg PO DAILY 05/15/21 [History] Amlodipine/Valsartan/Hcthiazid [Eyiyi-Xwmzn-Vqvw 10-320-25 mg] 1 each PO DAILY 05/15/21 [History] Carbidopa/Levodopa [Carbidopa-Levo 25-100 Tab] 1 tablet PO QID 05/15/21 [History] Dorzolamide HCl/Pf [Dorzolamide 2% Eye Drop] 1 drop OP BID 05/15/21 [History] Memantine HCl 10 mg PO DAILY 05/15/21 [History] Potassium Chloride Tab* [Klor Con] 10 meq PO DAILY 05/15/21 [History] Rivastigmine Tartrate [Rivastigmine] 1.5 mg PO TID 05/15/21 [History] Sertraline HCl 25 mg PO DAILY 05/15/21 [History] Hx Tetanus, Diphtheria Vaccination/Date Given: No Hx Influenza Vaccination/Date Given: No Hx Pneumococcal Vaccination/Date Given: No Immunizations Up to Date: Yes Travel Risk - International Travel Have you traveled outside of the country in past 3 weeks: No - Coronavirus Screening Are you exhibiting any of the following symptoms?: Yes Symptoms: Cough: New Onset Close contact with a COVID-19 positive Pt in past 14-21 Days: No - Vaccine Status Have you recieved a Covid-19 vaccination: Yes Splicing Technician: Moderna - Vaccination Dates Date of 2cond Vaccination (if applicable): 01/16/21 - Review of Systems Constitutional: No Fever, No Chills Eyes: No Symptoms Ears, Nose, & Throat: No Symptoms, Nose Congestion, Nose Discharge, Hoarse Respiratory: No Cough, No Dyspnea Cardiac: No Chest Pain, No Edema, No Syncope Abdominal/Gastrointestinal: No Abdominal Pain, No Nausea, No Vomiting, No Diarrhea Genitourinary Symptoms: No Dysuria Musculoskeletal: No Back Pain, No Neck Pain Skin: No Rash Neurological: No Dizziness, No Focal Weakness, No Sensory Changes Psychological: No Symptoms Endocrine: No Symptoms All Other Systems: Reviewed and Negative - Past Medical History Pertinent Past Medical History: Yes Neurological History: Other Cardiac History: High Cholesterol, Hypertension Respiratory History: No Pertinent History Endocrine Medical History: No Pertinent History Musculoskeletal History: Arthritis GI Medical History: Irritable Bowel History: No Pertinent History Psycho-Social History: No Pertinent History Female Reproductive Disorders: No Pertinent History Other Medical History: GLAUCOMA, IBS. SX: HYSTERECTOMY, BLADDER SURGERY, TRABCULECTOMY FOR GLAUCOMA RIGHT - Past Surgical History Past Surgical History: Yes Neuro Surgical History: No Pertinent History Cardiac: No Pertinent History Respiratory: No Pertinent History Gastrointestinal: No Pertinent History Genitourinary: No Pertinent History Female Surgical History: Hysterectomy Other Surgical History: BLADDER SURGERY,HYSTERECTOMY,EYE SURGERY - Social History Smoking Status: Former smoker Exposure to second hand smoke: Yes Drug Use: none Patient Lives Alone: No Significant Family History: no pertinent family hx - Nursing Vital Signs Nursing Vital Signs: Initial Vital Signs Temperature 97.8 F 02/04/23 09:47 Pulse Rate 66 02/04/23 09:47 Respiratory Rate 22 02/04/23 09:47 Blood Pressure 119/50 02/04/23 09:47 O2 Sat by Pulse Oximetry 96 02/04/23 09:47 Pain Scale Pain Intensity 0 - Physical Exam General Appearance: no apparent distress, alert Eye Exam: PERRL/EOMI, eyes nml inspection Ears, Nose, Throat Exam: normal ENT inspection, TMs normal, pharynx normal, moist mucous membranes, other (Very hoarse) Neck Exam: normal inspection, non-tender, supple, full range of motion Respiratory Exam: normal breath sounds, lungs clear, No respiratory distress Cardiovascular Exam: regular rate/rhythm, normal heart sounds Gastrointestinal/Abdomen Exam: soft, No tenderness Back Exam: normal inspection, No CVA tenderness, No vertebral tenderness Extremity Exam: normal inspection, normal range of motion Neurologic Exam: alert, oriented x 3, cooperative, normal mood/affect, sensation nml, No motor deficits Skin Exam: normal color, warm, dry, No rash Lymphatic Exam: No adenopathy SpO2 Interpretation: normal SpO2: 97 O2 Delivery: Room Air - Course Nursing assessment & vital signs reviewed: Yes - CT Exams Chest CT Interpretation: Other (Chest x-ray read as normal by the radiologist and reviewed by me) Ordered Tests: Active Orders 24 hr Category Date Time Status CHEST 1 VIEW (PORTABLE) Stat Exams 02/04/23 09:56 Completed CBC W DIFF Stat Lab 02/04/23 10:15 Completed CMP Stat Lab 02/04/23 09:56 Completed Lactic Acid Stat Lab 02/04/23 09:56 Completed PROCALCITONIN Stat Lab 02/04/23 Completed UA W/RFX UR CULTURE Stat Lab 02/04/23 09:56 Ordered Lab/Rad Data: Laboratory Result Diagrams 02/04/23 10:15 02/04/23 09:56 Laboratory Results 02/04/23 02/04/23 02/04/23 Range/Units Unknown Unknown 10:15 WBC 6.8 (4.0-10.5) x10^3/uL RBC 4.05 L (4.1-5.4) x10^6/uL Hgb 11.6 L (12.0-16.0) g/dL Hct 36.5 (35-47) % MCV 90.1 (78-100) fL MCH 28.6 (26-32) pg MCHC 31.8 L (32-36) g/dL RDW 14.9 H (11.5-14.0) % Plt Count 224 (150-450) x10^3/uL MPV 10.5 (7.5-11.0) fL Gran % 64.8 (36.0-66.0) % Immature Gran % (Auto) 3.8 H (0.00-0.4) % Nucleat RBC Rel Count 0.0 (0.00-0.1) % Eos # (Auto) 0.05 (0-0.5) x10^3/uL Immature Gran # (Auto) 0.26 H (0.00-0.03) x10^3u/L Absolute Lymphs (auto) 1.45 (1.0-4.6) x10^3/uL Absolute Monos (auto) 0.59 (0.0-1.3) x10^3/uL Absolute Nucleated RBC 0.00 (0.00-0.01) x10^3u/L Lymphocytes % 21.4 L (24.0-44.0) % Monocytes % 8.7 (0.0-12.0) % Eosinophils % 0.7 (0.00-5.0) % Basophils % 0.6 (0.0-0.4) % Absolute Granulocytes 4.39 (1.4-6.9) x10^3/uL Basophils # 0.04 (0-0.4) x10^3/uL Sodium (137-145) mmol/L Potassium (3.5-5.1) mmol/L Chloride (98-107) mmol/L Carbon Dioxide (22-30) mmol/L Anion Gap (5-15) MEQ/L BUN (7-17) mg/dL Creatinine (0.52-1.04) mg/dL Estimated GFR ML/MIN Glucose (74-106) mg/dL Lactic Acid (0.4-2.0) Calcium (8.4-10.2) mg/dL Total Bilirubin (0.2-1.3) mg/dL AST (14-36) U/L ALT (0-35) U/L Alkaline Phosphatase (38-126) U/L Serum Total Protein (6.3-8.2) g/dL Albumin (3.5-5.0) g/dL Procalcitonin 0.086 H (0.030-0.080) ng/mL Influenza Type A Ag NEGATIVE (NEGATIVE) Influenza Type B Ag NEGATIVE (NEGATIVE) RSV (PCR) NEGATIVE (NEGATIVE) SARS-CoV-2 (PCR) POSITIVE A (NEGATIVE) Group A Strep Antibody (NEGATIVE) 02/04/23 02/04/23 02/04/23 Range/Units 09:56 09:56 09:56 WBC (4.0-10.5) x10^3/uL RBC (4.1-5.4) x10^6/uL Hgb (12.0-16.0) g/dL Hct (35-47) % MCV (78-100) fL MCH (26-32) pg MCHC (32-36) g/dL RDW (11.5-14.0) % Plt Count (150-450) x10^3/uL MPV (7.5-11.0) fL Gran % (36.0-66.0) % Immature Gran % (Auto) (0.00-0.4) % Nucleat RBC Rel Count (0.00-0.1) % Eos # (Auto) (0-0.5) x10^3/uL Immature Gran # (Auto) (0.00-0.03) x10^3u/L Absolute Lymphs (auto) (1.0-4.6) x10^3/uL Absolute Monos (auto) (0.0-1.3) x10^3/uL Absolute Nucleated RBC (0.00-0.01) x10^3u/L Lymphocytes % (24.0-44.0) % Monocytes % (0.0-12.0) % Eosinophils % (0.00-5.0) % Basophils % (0.0-0.4) % Absolute Granulocytes (1.4-6.9) x10^3/uL Basophils # (0-0.4) x10^3/uL Sodium 140 (137-145) mmol/L Potassium 3.6 (3.5-5.1) mmol/L Chloride 104 (98-107) mmol/L Carbon Dioxide 30 (22-30) mmol/L Anion Gap 9.8 (5-15) MEQ/L BUN 15 (7-17) mg/dL Creatinine 0.95 (0.52-1.04) mg/dL Estimated GFR 58.9 ML/MIN Glucose 148 H (74-106) mg/dL Lactic Acid 1.3 (0.4-2.0) Calcium 8.2 L (8.4-10.2) mg/dL Total Bilirubin 0.60 (0.2-1.3) mg/dL AST 26 (14-36) U/L ALT 9 (0-35) U/L Alkaline Phosphatase 67 (38-126) U/L Serum Total Protein 6.7 (6.3-8.2) g/dL Albumin 3.8 (3.5-5.0) g/dL Procalcitonin (0.030-0.080) ng/mL Influenza Type A Ag (NEGATIVE) Influenza Type B Ag (NEGATIVE) RSV (PCR) (NEGATIVE) SARS-CoV-2 (PCR) (NEGATIVE) Group A Strep Antibody NOT DETECTED (NEGATIVE) - Progress Progress: unchanged Air Movement: good Blood Culture(s) Obtained: No Antibiotics given: No Discussed with : Karri Will see patient in: office Counseled pt/family regarding: need for follow-up Medical Desision Making - Independent Historian Additional History obtained from: Child - Discussion of managment Care discussed with:: PCP Reviewed:: Test results Agreed on:: Treatment plan Will see patient: In office - Diagnostic Testing Diagnostic test were ordered, analyzed, and reviewed by me: Yes Radiological Interpretation: Reviewed by me - Risk of complications Low Risk: Low risk of morbidity from additional dx testing or treatment The pt has a mod risk of morbidity or mortality based on: Need for prescription drug management - Departure Departure Disposition: Home Clinical Impression: COVID-19 Condition: Stable Critical Care Time: No Referrals: LOREN AGUIRRE DO [Primary Care Provider] - Follow up/PCP as directed Instructions: Cough, Adult (DC) Prescriptions: Benzonatate 100 mg PO TID 7 Days #21 cap
[2023-02-04 10:35] LABS: Absolute Neutrophil Ct (ANC) 4.39 x10^3/uL (1.4-6.9); BASOPHIL % 0.6 % (0.0-0.4); Basophil (Absolute #) 0.04 x10^3/uL (0-0.4); Eosinophil % 0.7 % (0.00-5.0); Eosinophil (Absolute #) 0.05 x10^3/uL (0-0.5); Hematocrit 36.5 % (35-47); Hemoglobin 11.6 g/dL (12.0-16.0); IMMATURE GRAN # 0.26 x10^3u/L (0.00-0.03); IMMATURE GRAN % 3.8 % (0.00-0.4); Lymphocyte (Absolute #) 1.45 x10^3/uL (1.0-4.6); Lymphocytes % 21.4 % (24.0-44.0); Mean Cell Volume 90.1 fL (78-100); Mean Corpuscular Hemoglobin 28.6 pg (26-32); Mean Corpuscular Hgb Concent. 31.8 g/dL (32-36); Mean Platelet Volume 10.5 fL (7.5-11.0); Monocyte (Absolute #) 0.59 x10^3/uL (0.0-1.3); Monocytes % 8.7 % (0.0-12.0); Neutrophil % 64.8 % (36.0-66.0); Platelet Count 224 x10^3/uL (150-450); Red Blood Count 4.05 x10^6/uL (4.1-5.4); Red Cell Distribution Width 14.9 % (11.5-14.0); White Blood Count 6.8 x10^3/uL (4.0-10.5)
--- NOTE | 2023-02-04 10:38 | XRAY ---
Indication: Short of breath. Covid 19 one week ago. Comparison: May 29, 2021 Portable chest better inflated and is now clear. Heart remains borderline enlarged. Bony thorax intact again with osteopenia and mild degenerative changes. No new/acute findings.
[2023-02-04 10:41] LABS: ALBUMIN 3.8 g/dL (3.5-5.0); ANION GAP 9.8 MEQ/L (5-15); BILIRUBIN,TOTAL 0.6 mg/dL (0.2-1.3); Calcium 8.2 mg/dL (8.4-10.2); Creatinine 1 0.95 mg/dL (0.52-1.04); EST GLOMERULAR FILTRATION RATE 58.9 ML/MIN; Potassium 3.6 mmol/L (3.5-5.1); Total Protein 6.7 g/dL (6.3-8.2)
[2023-02-04 11:01] LABS: INFLUENZA A NEGATIVE (NEGATIVE); INFLUENZA B NEGATIVE (NEGATIVE); RESPIRATORY SYNCTIAL VIRUS NEGATIVE (NEGATIVE)
[2023-02-04 11:07] LABS: SARS-CoV-2 Xpert Express POSITIVE (NEGATIVE)
[2023-02-04 11:19] VITALS: BP 131/52; PULSE 66; O2SAT 97
== END 2023-02-04 11:53 | disposition home or self-care (01) ==
LOC: ED 09:33
DX: U07.1 COVID-19 (principal); R05.1 Acute cough; R09.81 Nasal congestion; R49.0 Dysphonia; R09.89 Other specified symptoms and signs involving the circulatory and respiratory systems; E78.5 Hyperlipidemia, unspecified; I10 Essential (primary) hypertension; Z79.899 Other long term (current) drug therapy
CPT/HCPCS: 0241U; 36415; 71045; 80053; 83605; 84145; 85025; 87651; 99283